=== PATIENT | female | born 1940 | race Caucasian/White ===

== ENCOUNTER 2017-12-08 09:17 | Outpatient (CLI) | payer MEDICARE ==
--- NOTE | 2017-12-08 11:47 | CT ---
CT OF ABDOMEN AND PELVIS PERFORMED WITH INTRAVENOUS CONTRAST ENHANCEMENT: History: Endometrial cancer, restaging. Patient has history of endometrial cancer with positive lymph nodes, status post radiation treatment. Comparison: 12-16-16 FINDINGS: The lung bases are clear. Suggestion of some fatty changes of the liver. The spleen is normal in appearance. The pancreas shows no evidence of mass or ductal dilatation. Some small areas of increased attenuation of the gallbladd er lumen could potentially represent tiny stones. Ultrasound would be required for assessment. Right and let adrenal glands and right and left kidneys are normal in size with stable appearance to a 2.7 cm right renal cyst noted. There is no significant periaortic or mesenteric lymphadenopathy. Colonic diverticulosis is noted. CT OF PELVIS PERFORMED WITH CONTRAST ENHANCEMENT: The uterus has been removed. I do not see any evidence for any significant pelvic lymphadenopathy. Ti ny subcentimeter nodes are seen. No significant inguinal adenopathy. IMPRESSION: 1. Post-operative changes of the pelvis with some scarring related to the hysterectomy change. No sig nificant adenopathy. 2. Colonic diverticulosis. 3. Fatty changes of the liver. 4. Possible gallstones. POS: COLT
== END 2017-12-08 09:18 | disposition home or self-care (01) ==
LOC: SCSCT 09:17
PROVIDERS: ATTEND Radiology Radiation Oncology
DX: C54.1 Malignant neoplasm of endometrium (principal); K57.30 Diverticulosis of large intestine without perforation or abscess without bleeding; K76.0 Fatty (change of) liver, not elsewhere classified; Z90.710 Acquired absence of both cervix and uterus
CPT/HCPCS: 74177

== ENCOUNTER 2018-03-01 08:59 | Outpatient (CLI) | payer MEDICARE | END 2018-03-01 09:00 | disposition home or self-care (01) | LOC: BICMAMMO 08:59 | PROVIDERS: ATTEND Radiology Radiation Oncology | DX: N63.12 Unspecified lump in the right breast, upper inner quadrant (principal); N64.89 Other specified disorders of breast | CPT/HCPCS: 76642; 77066; G0279 ==

== ENCOUNTER 2018-06-24 10:32 | Outpatient (CLI) | payer MEDICARE | END 2018-06-24 10:33 | disposition home or self-care (01) | LOC: BICMAMMO 10:32 | PROVIDERS: ATTEND Specialist | DX: N64.89 Other specified disorders of breast (principal); Z98.890 Other specified postprocedural states ==